=== PATIENT | female | born 1960 | race Two or more races ===

== ENCOUNTER 2017-08-18 09:31 | Emergency (ER) | payer OTHER ==
[2017-08-18] MEDS ORDERED: OXYCODONE/APAP 5/325 TAB PO ONE (10:14)
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
[2017-08-18 12:22] VITALS: BP 121/71
== END 2017-08-18 13:23 | disposition home or self-care (01) ==
DX: S20.219A Contusion of unspecified front wall of thorax, initial encounter (principal); S16.1XXA Strain of muscle, fascia and tendon at neck level, initial encounter; S39.012A Strain of muscle, fascia and tendon of lower back, initial encounter; S39.92XA Unspecified injury of lower back, initial encounter; I10 Essential (primary) hypertension; V87.7XXA Person injured in collision between other specified motor vehicles (traffic), initial encounter; Y92.410 Unspecified street and highway as the place of occurrence of the external cause; Y99.8 Other external cause status; Y93.89 Activity, other specified